=== PATIENT | female | born 1945 | race Caucasian/White ===

== ENCOUNTER 2017-10-22 14:09 | Inpatient (IN) | payer MEDICARE ==
[2017-10-22] VITALS (28 sets, daily range): BP systolic 96–165; BP diastolic 55–83
[2017-10-22] MEDS ORDERED: NS 1,000 ML IV ONE (14:30)
[2017-10-22 14:40] LABS: ABG BASE EXCESS -18.7 (-2.0-2.0); ABG HCO3 15.2 MEQ/L (22.0-26.0); ABG PARTIAL PRESSURE O2 72.1 mmHg (75.0-100.0); ABG STANDARD HCO3 10.5 MEQ/L (22.0-26.0); ABG TOTAL CO2 17.7 MEQ/L (23.0-31.0)
[2017-10-22 14:44] LABS: ABG PARTIAL PRESSURE CO2 80.1 mmHg (35.0-45.0); ABG pH (ARTERIAL) 6.896 UNITS (7.350-7.450)
[2017-10-22 14:54] LABS: BASO % 0.3 % (0.0-1.0); EOS # 0.3 10^3/uL (0.0-0.50); EOS % 2.9 % (0.0-3.0); IMMATURE GRANULOCYTE % 3.3 % (0-0); LYMPH # 3.8 10^3/uL (1.5-4.5); MEAN CORPUSCULAR HEMOGLOBIN 29.9 pg (27.0-33.0); MEAN CORPUSCULAR HGB CONC 28.6 g/dl (32.0-36.5); MEAN CORPUSCULAR VOLUME 104.4 fl (80.0-96.0); MONO # 0.4 10^3/uL (0.0-0.8); MONO % 4.9 % (0.0-5.0); NEUTROPHILS # 3.8 10^3/uL (1.8-7.7); NEUTROPHILS % 44.6 % (36.0-66.0); PLATELET COUNT, AUTOMATED 309 10^3/uL (150-450); RED CELL DISTRIBUTION WIDTH 14.1 % (11.5-14.5); WHITE BLOOD COUNT 8.6 10^3/uL (4.0-10.0)
[2017-10-22 15:03] LABS: INR 1.15
--- NOTE | 2017-10-22 15:03 | REP ---
Chest one-view HISTORY: Chest pain Comparison: 01/19/2014 Patchy density is present in the lungs consistent with bilateral infiltrates or edema. The heart is upper limits of normal in size. The pulmonary vasculature cannot be evaluated. An ET tube is present. The pulmonary vasculature is normal in appearance. Impression: Bilateral infiltrates or edema. Signed by Dario Redd MD 10/22/2017 02:55 P
[2017-10-22 15:20] LABS: ALBUMIN 3.1 GM/DL (3.2-5.2); ALBUMIN/GLOBULIN RATIO 0.82 (1.00-1.93); ALKALINE PHOSPHATASE 101 U/L (45-117); ALT/SGPT 27 U/L (12-78); ANION GAP 15 MEQ/L (8-16); AST/SGOT 26 U/L (7-37); BILIRUBIN,DIRECT < 0.1 MG/DL (0.0-0.2); BILIRUBIN,TOTAL 0.3 MG/DL (0.2-1.0); BLOOD UREA NITROGEN 30 MG/DL (7-18); CALCIUM LEVEL 8.5 MG/DL (8.8-10.2); CARBON DIOXIDE LEVEL 21 MEQ/L (21-32); CHLORIDE LEVEL 107 MEQ/L (98-107); CREATININE FOR GFR 1.73 MG/DL (0.55-1.02); FREE T4 0.81 NG/DL (0.76-1.46); GLOMERULAR FILTRATION RATE 30.9 (>39); GLUCOSE, FASTING 249 MG/DL (83-110); SODIUM LEVEL 143 MEQ/L (136-145); TOTAL PROTEIN 6.9 GM/DL (6.4-8.2)
[2017-10-22 15:29] LABS: POTASSIUM SERUM 6.1 MEQ/L (3.5-5.1)
[2017-10-22] MEDS: DOPamine HCL 400 MG in APPROPRIATE DILUENT 1 EA IV SCH ×4 (15:37→18:53)
[2017-10-22] MEDS ORDERED: MORPHINE 2 MG/ML 1ML SYRINGE IV PRN (16:15)
[2017-10-22] MEDS ORDERED: LACRILUBE (AKWA TEARS) OPHTH OINT 3.5 GM OU PRN (16:15)
--- NOTE | 2017-10-22 16:16 | REP ---
Chest one-view HISTORY: central line placement Comparison: 02:43 p.m. 10/22/2017 Patchy density is present in the lungs consistent with bilateral infiltrates or edema. The heart is upper limits of normal in size. Pulmonary vasculature cannot be evaluated. A central line is present in the superior vena cava. An ET tube is present. Impression: 1. Bilateral infiltrates or edema unchanged compared to the previous study 2. The patient is status post central line placement in the superior vena cava. Signed by Dario Redd MD 10/22/2017 04:07 P
[2017-10-22] MEDS ORDERED: CARV12.5 PO (16:34)
[2017-10-22] MEDS ORDERED: TYLE500T78 PO (16:34)
[2017-10-22] MEDS ORDERED: SIMV40TA2 PO (16:34)
[2017-10-22] MEDS ORDERED: NITR4TASL SL (16:34)
[2017-10-22] MEDS ORDERED: ASPI1TAB PO (16:34)
[2017-10-22] MEDS ORDERED: LISI10TA4 PO (16:34)
[2017-10-22] MEDS ORDERED: FURO80TA2 PO (16:34)
[2017-10-22] MEDS ORDERED: PATIENT COMMENT (16:35)
--- NOTE | 2017-10-22 16:58 | HPE ---
DATE OF ADMISSION: 10/22/2017 CHIEF COMPLAINT: Pulmonary / critical care team was called urgently to the ER for this patient is for cardiopulmonary arrest that occurred prior to arrival in ER. Patient was unresponsive and therefore unable to give any history. and family were able to give limited history. Apparently the patient was leaving a store when she stated she did not feel well and sat down and became unresponsive. According to the ER report the patient so transported her to the ER where she was brought to be in asystole. She was given epinephrine and intubated. CPR was performed and did expel some gastric contents which was felt to be likely aspiration. With CPR demonstrated PA and then converted to sinus rhythm of 80 on dopamine. Blood pressure was 100 on dopamine. When pulmonary critical care team was called in, we saw the patient and proceeded to place a central line. As noted history was difficult to obtain. Review of systems was unable to obtain. PAST MEDICAL HISTORY: I was able to obtain some from the patient's . The patient has a history of coronary artery disease and follows with Dr. Amador. She does have a history of stent placement. She has a history of hypertension. She does have a history of PATRIC and uses C-PAP. FAMILY MEDICAL HISTORY: Noncontributory. MEDICATIONS: According to pulmonary office note for sleep apnea from July the patient is on C-PAP. Nitrostat as needed. Carvedilol 12.5 mg by mouth twice a day, aspirin 81 mg by mouth daily, acetaminophen 500 mg two tablets by mouth daily, furosemide 40 mg 1 tablet by mouth daily, lisinopril 10 mg daily, vitamin D3 1000 units daily. ALLERGIES: According to the patient's NO KNOWN DRUG ALLERGIES. SOCIAL HISTORY: According the patient's , the patient does not smoke or drink alcohol. PHYSICAL EXAMINATION: VITALS: Blood pressure is 121/59 on dopamine going at 58 mcg per kilogram, heart rate is 82, O2 saturation is 92%. General: The patient is unresponsive. HEENT: Head is normocephalic, atraumatic. Eyes pinpoint pupils. Nonreactive. Moist mucous membranes. Tongue is large. Mallampati 4. Neck is large. No discernable JVP. Trachea is midline, no thyromegaly Chest: Diminished breath sounds with no wheezes, rales, rhonchi or crackles.No dullness to percussion Heart: Regular rate and rhythm. PMI unable to tell due to obtain due to the patient's habitus. No murmur rub or gallop. Abdomen: Obese. Positive bowel sounds, soft. No hepatosplenomegaly. Extremities: No edema. Right upperchest wall/ extremity with some cyanosis likely secondary to epinephrine administration. No cyanosis. Neuro: No myoclonus, dtr's hyporeflexic at patella and brachioradialis. Babinski is down going bilaterally. Patient is not triggering the vent currently. LABORATORY DATA: WBC 0.6, hemoglobin 12.2, hematocrit 42.6, platelets 309. Sodium 143, potassium 6.1, chloride 107, carbon dioxide 21, BUN 30, creatinine 1.73, glucose 249, calcium 8.5, total bili 0.38, direct bili less than 0.1, AST 26, ALT 27, alk phos 101, CK 103, CK-MB 2.4, CK-MB relative index 2.33. Troponin I 0.13 ENT 1746, total protein 6.9, albumin 3.1, lipase is 228. TSH is 4.350, free T4 0.81. EKG shows sinus tachycardia with ST depressions. CXR: Diffuse infiltrate versus edema with cardiomegaly. ASSESSMENT/PLAN: 1. Cardiopulmonary arrest, possibly secondary to arrhythmia such as V-Tach versus acute ischemia. The patient will be admitted to ICU. She was intubated. Central line was placed in the ER. Will order echocardiogram to check cardiac function. The patient follows with Dr. Amador as an outpatient. We will consult him. The patient will be cooled to improve neurological recovery. Will monitor on telemetry. The patient will continue on dopamine for hypotension. Check SVO2 to ensure adequate perfusion. 2. Respiratory failure. The patient will receive mechanical ventilation. 3. Aspiration. The patient will be covered with ceftriaxone. 4. Obstructive sleep apnea. 5. Hyperkalemia. This is likely secondary to acidosis. TOTAL CRITICAL CARE TIME: 90 minutes. [facility]
[2017-10-22] MEDS: CEFTRIAXONE SOD 1 GM in APPROPRIATE DILUENT 1 EA IV SCH (17:39)
[2017-10-22] MEDS: levETIRAcetam INJection 500 MG in D5W MINI-BAG PLUS 100 ML IV SCH (17:39)
[2017-10-22 18:05] LABS: CALCIUM LEVEL 8.1 MG/DL (8.8-10.2); CREATININE FOR GFR 1.82 MG/DL (0.55-1.02); GLOMERULAR FILTRATION RATE 29.2 (>39)
[2017-10-22 18:11] LABS: POTASSIUM SERUM 7.3 MEQ/L (3.5-5.1)
[2017-10-22] MEDS ORDERED: FUROSEMIDE 100 MG/10 ML VIAL (J1940) As Ordered ONE (18:11)
[2017-10-22] MEDS ORDERED: FUROSEMIDE 100 MG/10 ML VIAL (J1940) IV ONE (18:15)
[2017-10-22] MEDS ORDERED: DEXTROSE 50% 50 ML SYRINGE IV STA (18:23)
[2017-10-22] MEDS ORDERED: HumuLIN R (REGULAR) INSULIN (NovoLIN R) **100U/ML** PER UNIT IV STA (18:23)
[2017-10-22] MEDS ORDERED: EPINEPHrine 1MG/10ML SYRINGE 1.5IN ONE (18:26)
[2017-10-22] MEDS ORDERED: SODIUM BICARBONATE 8.4% INJ 50 ML SYRINGE ONE (18:26)
--- NOTE | 2017-10-22 18:40 | RO ---
DATE OF PROCEDURE: 10/22/2017 DIAGNOSIS: Hypotension. POSTPROCEDURE DIAGNOSIS: Hypotension. PROCEDURE: Left internal jugular vein venous triple-lumen catheter placement. SURGEON: Dr. Samuel ARTIST REPRESENTATIVE: No assistants. ANESTHESIA: The patient already intubated on mechanical ventilation. No spontaneous movements. Left IJ was prepped and draped in a sterile manner with chlorhexidine full sterile precautions. Time-out was performed with two patient identifiers identifying correct site, correct procedure. Left IJ was then identified under ultrasound and the Angelica syringe was introduced in the IJ on the first pass. There is return of venous blood flow. The wire was fed through the needle and the needle was removed and the triple-lumen catheter was placed via modified Seldinger technique. All three ports returned venous blood flow and flushed easily. There were no observed complications and line was sutured in at 15 cm. Chest x-ray shows adequate position with the tip of the line in the SVC.
[2017-10-22] MEDS ORDERED: CALCIUM GLUCONATE 1,000 MG in D5W MINI-BAG PLUS 100 ML IV ONE (18:45)
[2017-10-22] MEDS: IPRATROPIUM 0.5MG/ALBUTEROL 2.5MG INH SOL UD 3ML (DUONEB)(J7620) NEB SCH (19:21)
--- NOTE | 2017-10-22 20:29 | CR ---
DATE OF CONSULTATION: 10/22/2017 REFERRING PHYSICIAN: Dr. Samuel INDICATION: Cardiac arrest. HISTORY OF PRESENT ILLNESS: Mrs. Olguin is a 72-year-old female who I know from the office. She was in her usual state of health until this afternoon when she was leaving insurance office and she mentioned to her that she was feeling short of breath. He wanted to take her to emergency room immediately but then she wanted to go home but during ride home she said that she was getting worse and so they turned around at which point she lost consciousness. Her drove her to our emergency room. He estimated that the time without consciousness was at least 10 minutes. On arrival to emergency room (ER), she was asystolic. After prolonged cardiopulmonary resuscitation (CPR), there was return of spontaneous circulation. Central line was placed by Dr. Samuel and she was intubated, brought to intensive care unit (ICU) and cooling protocol started. I attempted to place a radial arterial line unsuccessfully. At the time of my evaluation, the patient was intubated. There was no sedation going. She had minimal reflexes. There were frequent fasciculations and she certainly did not have any purposeful movements. Her does not recall that she would complain about any chest discomfort prior to the onset of loss of consciousness. Her electrocardiogram after return of spontaneous circulation revealed sinus tachycardia with precordial ST-segment depressions about 1 mm. At the time of my dictation, her last basic metabolic panel revealed significant hyperkalemia. At her bedside, she is intubated. She has posturing movement. I do not appreciate any corneal reflex. There are fasciculations of both upper and lower extremities. Lungs reveal diffuse expiratory wheezes and crackles consistent with pulmonary edema. There is foaming from the endotracheal (ET) tube . Abdomen is a very obese but soft. There is intertrigo in her groins. The cooling blanket is on. Peripheral pulses are poorly palpable. PAST MEDICAL HISTORY: Coronary artery disease. She underwent cardiac catheterization in December 2013 , after presentation with inferior wall ST-elevation myocardial infarction (STEMI) . She received bare metal stent to proximal right coronary artery (RCA) and drug-eluting stents to mid left anterior descending (LAD) and plain balloon angioplasty to distal LAD. Estimated ejection fraction (EF) was approximately 45%. She also has a history of degenerative joint disease, gastroesophageal reflux disease (GERD), hyperlipidemia, hypertension and psoriasis. Surgical history is positive only for cardiac catheterization. FAMILY HISTORY: Her father had chronic obstructive pulmonary disease (COPD) and coronary artery disease, but lived to be . Her mother in her 70s of unknown causes. SOCIAL HISTORY: The patient is . She never smoked. 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 She has two children that are at the waiting room. OUTPATIENT MEDICATIONS: - aspirin 81 mg a day - Coreg 12.5 twice a day - furosemide 40 mg a day - lisinopril 10 mg a day - nitroglycerin as needed - simvastatin 40 mg a day - Tylenol as needed ALLERGIES: She reports intolerance of LIPITOR. REVIEW OF SYSTEMS: Is unobtainable due to her condition but according to her in last few days there were no unusual events. PHYSICAL EXAMINATION: The patient is intubated without sedation. She has upward gaze. I do not appreciate any obvious corneal reflex. Lungs reveal expiratory wheezes with rhonchi as above. Heart exam very muffled heart sound but no gallop, rub or murmur is appreciated. Abdomen is markedly obese but soft. No obvious guarding. Peripheral pulses are barely palpable but there is no peripheral edema. LABORATORY: Her initial basic metabolic panel reveals potassium 6.1, BUN 30, creatinine 1.7, glucose 249. Followup at 1732, potassium 7.3, BUN is 39, creatinine 1.8, and glucose 392. Her TSH is 4.3. First troponin I was 0.13. CBC with a hemoglobin 12.2, hematocrit 42 and platelet count 309,000. She makes minimal amount of urine. There was about 100 mL through her Aranda catheter. Her chest x-ray reveals pulmonary edema and appropriate placement of the central line. The patient already received 80 mg of IV Lasix, calcium gluconate and also one ampule of D50 and 10 units of insulin in an attempt to treat hyperkalemia. Her followup comprehensive metabolic panel is pending. ASSESSMENT AND PLAN: Mrs. Olguin is a 72-year-old lady who has known coronary artery disease with remote history of coronary intervention about 3-1/2 years ago. She presented with cardiac arrest and presented to the ER with asystole, and later pulseless electrical activity. Unfortunately, her posturing and fasciculations and probable seizure activity are all harbingers of poor prognosis which was very poor to start with. I spoke with her and family; they decided that they do not want to prolong her suffering and decided that she will be DO NOT RESUSCITATE (DNR). In case there is ventricular fibrillation or severe bradycardia, they do not desire that she has chest compressions or defibrillations. They will provide ventilatory support and pressor support at least for foreseeable future, but they are ready to withdraw the care should her condition further deteriorate. I think it is very reasonable but of course statistically speaking, her chances are really poor, especially we should consider favorable outcome. In the interim, we will treat her comorbidities, treatment of hyperkalemia as above. She is on dopamine drip. I will put an order to ask for placement of nasogastric (NG) tube and she will be continued with cooling protocol. I spoke about her condition with Dr. Negro (will be covering for the weekend) and Dr. Wong. CIARRA
[2017-10-22 20:30] LABS: ALBUMIN 3.2 GM/DL (3.2-5.2); ALBUMIN/GLOBULIN RATIO 0.97 (1.00-1.93); BILIRUBIN,TOTAL 0.3 MG/DL (0.2-1.0); CALCIUM LEVEL 8.1 MG/DL (8.8-10.2); CREATININE FOR GFR 1.89 MG/DL (0.55-1.02); GLOMERULAR FILTRATION RATE 27.9 (>39); TOTAL PROTEIN 6.5 GM/DL (6.4-8.2)
[2017-10-22 20:33] LABS: POTASSIUM SERUM 5.6 MEQ/L (3.5-5.1)
[2017-10-22 21:23] LABS: MEAN CORPUSCULAR HEMOGLOBIN 30.4 pg (27.0-33.0); MEAN CORPUSCULAR VOLUME 98.3 fl (80.0-96.0); PLATELET COUNT, AUTOMATED 281 10^3/uL (150-450); RED CELL DISTRIBUTION WIDTH 13.5 % (11.5-14.5); WHITE BLOOD COUNT 17.2 10^3/uL (4.0-10.0)
[2017-10-22 21:34] LABS: INR 1.1
[2017-10-22 21:38] LABS: ABG BASE EXCESS -10.7 (-2.0-2.0); ABG HCO3 15.7 MEQ/L (22.0-26.0); ABG PARTIAL PRESSURE O2 201.4 mmHg (75.0-100.0); ABG STANDARD HCO3 16.1 MEQ/L (22.0-26.0); ABG TOTAL CO2 16.9 MEQ/L (23.0-31.0); ABG pH (ARTERIAL) 7.246 UNITS (7.350-7.450)
[2017-10-22 21:50] LABS: ALBUMIN 3.1 GM/DL (3.2-5.2); ALBUMIN/GLOBULIN RATIO 0.89 (1.00-1.93); BILIRUBIN,TOTAL 0.3 MG/DL (0.2-1.0); CALCIUM LEVEL 8.2 MG/DL (8.8-10.2); CREATININE FOR GFR 1.85 MG/DL (0.55-1.02); GLOMERULAR FILTRATION RATE 28.6 (>39); MAGNESIUM LEVEL 2.4 MG/DL (1.8-2.4); PHOSPHORUS LEVEL 4.8 MG/DL (2.5-4.9); POTASSIUM SERUM 4.6 MEQ/L (3.5-5.1); TOTAL PROTEIN 6.6 GM/DL (6.4-8.2)
[2017-10-22] MEDS: LACRILUBE (AKWA TEARS) OPHTH OINT 3.5 GM OU SCH (22:10)
[2017-10-22] MEDS: CHLORHEXIDINE ORAL RINSE 0.12%/15ML 120ML BOTTLE MT SCH (22:11)
[2017-10-23] VITALS (28 sets, daily range): BP systolic 107–156; BP diastolic 66–103; O2SAT 100
[2017-10-23 01:14] LABS: MEAN CORPUSCULAR HEMOGLOBIN 30.6 pg (27.0-33.0); MEAN CORPUSCULAR HGB CONC 31.8 g/dl (32.0-36.5); MEAN CORPUSCULAR VOLUME 96.2 fl (80.0-96.0); PLATELET COUNT, AUTOMATED 251 10^3/uL (150-450); RED CELL DISTRIBUTION WIDTH 13.4 % (11.5-14.5); WHITE BLOOD COUNT 14.7 10^3/uL (4.0-10.0)
[2017-10-23 01:17] LABS: ABG BASE EXCESS -9.4 (-2.0-2.0); ABG HCO3 15.4 MEQ/L (22.0-26.0); ABG PARTIAL PRESSURE CO2 30.6 mmHg (35.0-45.0); ABG PARTIAL PRESSURE O2 370.7 mmHg (75.0-100.0); ABG TOTAL CO2 16.4 MEQ/L (23.0-31.0)
[2017-10-23 01:25] LABS: INR 1.06
[2017-10-23 01:42] LABS: ALBUMIN/GLOBULIN RATIO 0.88 (1.00-1.93); BILIRUBIN,TOTAL 0.3 MG/DL (0.2-1.0); CALCIUM LEVEL 8.5 MG/DL (8.8-10.2); CREATININE FOR GFR 1.81 MG/DL (0.55-1.02); GLOMERULAR FILTRATION RATE 29.3 (>39); MAGNESIUM LEVEL 2.3 MG/DL (1.8-2.4); PHOSPHORUS LEVEL 3.9 MG/DL (2.5-4.9); POTASSIUM SERUM 4.2 MEQ/L (3.5-5.1); TOTAL PROTEIN 6.4 GM/DL (6.4-8.2)
[2017-10-23 05:23] LABS: ABG BASE EXCESS -8.5 (-2.0-2.0); ABG HCO3 16.6 MEQ/L (22.0-26.0); ABG PARTIAL PRESSURE CO2 33.1 mmHg (35.0-45.0); ABG PARTIAL PRESSURE O2 191.7 mmHg (75.0-100.0); ABG STANDARD HCO3 17.7 MEQ/L (22.0-26.0); ABG TOTAL CO2 17.6 MEQ/L (23.0-31.0); ABG pH (ARTERIAL) 7.318 UNITS (7.350-7.450)
[2017-10-23 05:34] LABS: MEAN CORPUSCULAR HEMOGLOBIN 30.1 pg (27.0-33.0); MEAN CORPUSCULAR HGB CONC 31.7 g/dl (32.0-36.5); MEAN CORPUSCULAR VOLUME 94.9 fl (80.0-96.0); PLATELET COUNT, AUTOMATED 252 10^3/uL (150-450); RED CELL DISTRIBUTION WIDTH 13.3 % (11.5-14.5)
[2017-10-23 05:46] LABS: INR 1.15
[2017-10-23 05:56] LABS: ALBUMIN 3.1 GM/DL (3.2-5.2); ALBUMIN/GLOBULIN RATIO 0.91 (1.00-1.93); BILIRUBIN,TOTAL 0.4 MG/DL (0.2-1.0); CALCIUM LEVEL 8.5 MG/DL (8.8-10.2); CREATININE FOR GFR 1.78 MG/DL (0.55-1.02); GLOMERULAR FILTRATION RATE 29.9 (>39); MAGNESIUM LEVEL 2.5 MG/DL (1.8-2.4); POTASSIUM SERUM 4.8 MEQ/L (3.5-5.1); TOTAL PROTEIN 6.5 GM/DL (6.4-8.2)
[2017-10-23] MEDS: levETIRAcetam INJection 500 MG in D5W MINI-BAG PLUS 100 ML IV SCH ×2 (06:12→17:12)
[2017-10-23] MEDS: IPRATROPIUM 0.5MG/ALBUTEROL 2.5MG INH SOL UD 3ML (DUONEB)(J7620) NEB SCH ×4 (07:37→20:49)
--- NOTE | 2017-10-23 08:39 | REP ---
Chest one-view HISTORY: Respiratory failure Comparison: 10/22/2017 Patchy density is present in the lungs consistent with bilateral infiltrates or edema unchanged compared to the previous study. A small left pleural effusion is present. The heart is upper limits of normal in size. The pulmonary vasculature is prominent. An ET tube NG tube and central line are present. Impression: Bilateral infiltrates or edema unchanged compared to the previous study. Signed by Dario Redd MD 10/23/2017 08:30 A
[2017-10-23] MEDS ORDERED: MORPHINE 2 MG/ML 1ML SYRINGE IV PRN (08:45)
[2017-10-23] MEDS: CHLORHEXIDINE ORAL RINSE 0.12%/15ML 120ML BOTTLE MT SCH ×2 (09:29→21:18)
[2017-10-23] MEDS: LACRILUBE (AKWA TEARS) OPHTH OINT 3.5 GM OU SCH ×3 (09:29→21:18)
[2017-10-23] MEDS ORDERED: REFRIGERATOR IV KEYS XX PRN (09:30)
[2017-10-23] MEDS ORDERED: MIDAZOLAM HCL 100 MG in D5W 80 ML IV SCH (09:30)
[2017-10-23 09:50] LABS: INR 1.01; MEAN CORPUSCULAR HEMOGLOBIN 30.2 pg (27.0-33.0); MEAN CORPUSCULAR VOLUME 94.3 fl (80.0-96.0); PLATELET COUNT, AUTOMATED 204 10^3/uL (150-450); RED CELL DISTRIBUTION WIDTH 13.3 % (11.5-14.5); WHITE BLOOD COUNT 13.4 10^3/uL (4.0-10.0)
[2017-10-23 09:55] LABS: ALBUMIN 3.1 GM/DL (3.2-5.2); ALBUMIN/GLOBULIN RATIO 0.89 (1.00-1.93); BILIRUBIN,TOTAL 0.3 MG/DL (0.2-1.0); CALCIUM LEVEL 8.2 MG/DL (8.8-10.2); CREATININE FOR GFR 1.8 MG/DL (0.55-1.02); GLOMERULAR FILTRATION RATE 29.5 (>39); MAGNESIUM LEVEL 2.4 MG/DL (1.8-2.4); PHOSPHORUS LEVEL 5.1 MG/DL (2.5-4.9); POTASSIUM SERUM 4.8 MEQ/L (3.5-5.1); TOTAL PROTEIN 6.6 GM/DL (6.4-8.2)
[2017-10-23] MEDS: PANTOPRAZOLE 40MG INJ (PROTONIX) (C9113) IV SCH (10:26)
[2017-10-23] MEDS: ASPIRIN 325 MG TAB NG SCH (10:26)
[2017-10-23] MEDS: ENOXAPARIN 40 MG/0.4 ML SYRINGE (J1650) SC SCH (10:26)
--- NOTE | 2017-10-23 10:41 | CCN ---
DATE OF VISIT: 10/23/2017 START TIME: 0800 hours. STOP TIME: 0842 hours. I attended Yarely Olguin here in the intensive care unit. Patient has been examined. Chart reviewed. I spoke at length with the nurse at the bedside. I had a lengthy conversation last evening as well, with Dr. Amador regarding her status. She remains on hypothermia protocol. She did meet goal temperature at around 1700 hours yesterday. Blood pressure is 120-160s. She has been able to be weaned off of the dopamine. Heart rate 50-70s with frequent ectopy. She does over breathe ventilator. She has made minimal urinary output. Most recent laboratory show a white blood cell count of 18.0, hemoglobin 12.3, platelet count 252,000. Sodium 142, potassium (K) 4.8, chloride 109, CO2 21, BUN 43, creatinine 1.78. Repeat lactic acid down 2.4. Most recent arterial blood gas done on assist control mode, tidal volume 440, rate of 20 and PEEP of 5 with an FiO2 of 80% had a pH 7.318, pCO2 33.1 and a pO2 of 191.7. Chest x-ray shows lines and tubes in good position. There is increased densities in the mid lung zones. Hilar area bilaterally consistent for pulmonary edema. On exam, eyes are open but she does not interact. She has received minimal sedation only in the form of morphine. She does over breathe the ventilator but really does not respond much to other stimuli. I do believe the pupils are somewhat reactive. Chest shows diminished but symmetric expansion. Diminished intensity inferiorly. There are dependent crackles. No convincing rhonchi. Cardiac exam is distant with frequent ectopy. Peripheral pulses markedly diminished but she is quite cool at the moment. Abdomen difficult to examine with the hypothermia blanket in place but generally soft. Diminished bowel sound activity. Extremities show no cyanosis or clubbing. Neurologically, she does not interact. There is occasional involuntary muscle activity. Does not appear to be seizure activity. Certainly could be myoclonus. Possibility of ineffectual shivering as well. The most pressing problems requiring my presence at the bedside: 1. Respiratory failure requiring mechanical ventilatory support. 2. Status post cardiac arrest. 3. Metabolic acidosis, multifactorial. 4. Encephalopathy, suspect primarily anoxic. 5. Underlying coronary artery disease. 6. DO NOT RESUSCITATE status. Dr. Amador had a lengthy discussion with the patient's family last evening, who he knows well from the outpatient setting and they have made her DO NOT RESUSCITATE. I believe this is quite appropriate. They are in full agreement with our current level of support. Once we are able to begin the rewarming process, we can consider diuretics at that point, but given the fact that she still has mild metabolic acidosis and is being cooled, I will tolerate her pulmonary edema pattern at this point as it is not interfering with her oxygenation status. I will add morphine and Versed in addition to the Keppra for her seizures/myoclonus. Once she has been rewarmed, at that point in time, we will reassess her neurologic status with repeat CT scan of the brain. I will continue her current antimicrobics. Ulcer and deep venous thrombosis (DVT) prophylaxis are in place. Once she is rewarmed, we can address nutrition. In view of her above situation, prognosis overall is guarded at best and there is a very high likelihood she will not survive this hospitalization. I am quite concerned regarding meaningful neurologic recovery as well, and that will be assessed on an ongoing basis. I left the bedside at 0842 hours. 42 of minutes of critical time at the bedside, not including procedures.
--- NOTE | 2017-10-23 10:46 | ECGEPIP ---
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
[2017-10-23 10:57] LABS: ABG BASE EXCESS -7.6 (-2.0-2.0); ABG HCO3 16.4 MEQ/L (22.0-26.0); ABG PARTIAL PRESSURE O2 89.7 mmHg (75.0-100.0); ABG STANDARD HCO3 18.3 MEQ/L (22.0-26.0); ABG TOTAL CO2 17.2 MEQ/L (23.0-31.0); ABG pH (ARTERIAL) 7.431 UNITS (7.350-7.450)
[2017-10-23 13:20] LABS: MEAN CORPUSCULAR HEMOGLOBIN 30.1 pg (27.0-33.0); MEAN CORPUSCULAR HGB CONC 32.5 g/dl (32.0-36.5); MEAN CORPUSCULAR VOLUME 92.8 fl (80.0-96.0); PLATELET COUNT, AUTOMATED 181 10^3/uL (150-450); RED CELL DISTRIBUTION WIDTH 13.3 % (11.5-14.5); WHITE BLOOD COUNT 11.1 10^3/uL (4.0-10.0)
[2017-10-23 13:33] LABS: INR 1.09
[2017-10-23 13:50] LABS: ALBUMIN 2.8 GM/DL (3.2-5.2); ALBUMIN/GLOBULIN RATIO 0.9 (1.00-1.93); BILIRUBIN,TOTAL 0.3 MG/DL (0.2-1.0); CALCIUM LEVEL 8.4 MG/DL (8.8-10.2); CREATININE FOR GFR 1.63 MG/DL (0.55-1.02); GLOMERULAR FILTRATION RATE 33.1 (>39); MAGNESIUM LEVEL 2.2 MG/DL (1.8-2.4); PHOSPHORUS LEVEL 4.8 MG/DL (2.5-4.9); POTASSIUM SERUM 4.4 MEQ/L (3.5-5.1); TOTAL PROTEIN 5.9 GM/DL (6.4-8.2)
[2017-10-23 13:54] LABS: ABG BASE EXCESS -6.7 (-2.0-2.0); ABG HCO3 16.9 MEQ/L (22.0-26.0); ABG PARTIAL PRESSURE CO2 23.6 mmHg (35.0-45.0); ABG TOTAL CO2 17.8 MEQ/L (23.0-31.0); ABG pH (ARTERIAL) 7.455 UNITS (7.350-7.450)
--- NOTE | 2017-10-23 15:05 | ECHO ---
DATE OF PROCEDURE: 10/23/2017 DATE OF : 1945 AGE: 72 GENDER: Female HEIGHT: 68 inches WEIGHT: 286 pounds BODY SURFACE AREA: 2.38 meters squared INPATIENT: ICU, room 3210 REFERRING PHYSICIAN: Dr. Monty Samuel INDICATION: Cardiac arrest/ known coronary artery disease/prior inferior wall myocardial infarction (IWMI). MEASUREMENTS: 2D measurements: RV: 3.8 cm LV: 5.8 cm Septum: 1.2 cm Posterior wall: 1.0 cm Aortic root: 3.2 cm LA: 5.3 cm LVEF: 40%. Doppler measurements: AV: 1.8 meters per second LVOT: 1.1 meters per second LVOT diameter: 2.2 cm MV-E: 77, A: 62, EA ratio: 1.2 Early mitral deceleration time: 225 milliseconds E prime: 6.2, A prime: 8, E/E prime ratio: 12.3 PV: 1.0 meters per second Pulmonary artery acceleration time: 99 milliseconds RVSP: 34 mmHg IVC: 2.0 cm COMMENTS: Normal sinus rhythm with occasional to frequent isolated premature ventricular contractions (PVCs). Prominently dilated left atrium and mild to moderately dilated left ventricle. Right heart chamber sizes were normal. Left ventricular (LV) wall thickness was increased except for the inferior wall. On real-time imaging from the parasternal and apical projections, the inferoseptal and inferior duenas were akinetic. Other left ventricular wall segments moved normally. Mildly thickened mitral annulus but normal leaflet thickness and excursion with no posterior systolic buckling. Three equal size aortic cusps with mildly thickened cusp edges but adequate cusp separation. Normal aortic root size. No apparent intracardiac mass or pericardial effusion. Color flow Doppler study taken from the parasternal and apical projection showed no aortic, mild-moderate eccentrically directed mitral insufficiency and mild tricuspid insufficiency. Guided continuous wave Doppler of her aortic valve showed a normal peak systolic velocity against LV outflow tract obstruction. Pulsed and continuous wave Doppler of her LV inflow tract taken from the apical four-chamber projection showed normal diastolic filling velocities against mitral stenosis. There was a pseudo normal pulse wave filling pattern with evidence of LV diastolic dysfunction with a prolonged early mitral deceleration time and tissue Doppler of her mitral annulus. Current estimated mean left atrial pressure was upper limits of normal. Pulsed and continuous wave Doppler of her pulmonary trunk showed a normal peak systolic velocity against RV outflow tract obstruction. Pulmonary artery acceleration time was abbreviated suggestive of least a mildly elevated pulmonary vascular resistance. Guided continuous wave Doppler of her tricuspid valve allowed our estimation of her right ventricular systolic pressure (mildly increased). Her inferior vena cava was of normal size with normal respiratory collapse against an elevated central venous pressure at this time. CONCLUSIONS: Mild to moderately dilated left ventricle with hypertrophy but inferior and inferoseptal akinesis and at least mild to moderate impairment of global resting systolic function. Prominently dilated left atrium with Doppler evidence of an impairment of LV diastolic function, yet current estimated mean left atrial pressure was upper limits of normal to at most mildly elevated. Normal right heart chamber sizes and wall motion with mild pulmonary hypertension. Normal inferior vena cava (IVC) size and collapse against an elevated central venous pressure at this time. Aortic valvular sclerosis without functional abnormality. Mild mitral annular calcification with mild-moderate eccentrically directed insufficiency.
[2017-10-23 17:11] LABS: ABG BASE EXCESS -7.9 (-2.0-2.0); ABG PARTIAL PRESSURE CO2 24.5 mmHg (35.0-45.0); ABG PARTIAL PRESSURE O2 123.3 mmHg (75.0-100.0); ABG STANDARD HCO3 18.1 MEQ/L (22.0-26.0); ABG TOTAL CO2 16.9 MEQ/L (23.0-31.0); ABG pH (ARTERIAL) 7.419 UNITS (7.350-7.450)
[2017-10-23 17:13] LABS: MEAN CORPUSCULAR HEMOGLOBIN 29.5 pg (27.0-33.0); MEAN CORPUSCULAR HGB CONC 31.7 g/dl (32.0-36.5); PLATELET COUNT, AUTOMATED 189 10^3/uL (150-450); RED CELL DISTRIBUTION WIDTH 13.2 % (11.5-14.5); WHITE BLOOD COUNT 12.2 10^3/uL (4.0-10.0)
[2017-10-23 17:17] LABS: INR 1.14
[2017-10-23 17:33] LABS: ALBUMIN 2.9 GM/DL (3.2-5.2); ALBUMIN/GLOBULIN RATIO 0.97 (1.00-1.93); BILIRUBIN,TOTAL 0.3 MG/DL (0.2-1.0); CALCIUM LEVEL 8.3 MG/DL (8.8-10.2); CREATININE FOR GFR 1.68 MG/DL (0.55-1.02); MAGNESIUM LEVEL 2.3 MG/DL (1.8-2.4); POTASSIUM SERUM 4.5 MEQ/L (3.5-5.1); TOTAL PROTEIN 5.9 GM/DL (6.4-8.2)
[2017-10-23] MEDS: CEFTRIAXONE SOD 1 GM in APPROPRIATE DILUENT 1 EA IV SCH (17:42)
[2017-10-23 21:01] LABS: MEAN CORPUSCULAR HEMOGLOBIN 29.8 pg (27.0-33.0); MEAN CORPUSCULAR VOLUME 93.1 fl (80.0-96.0); PLATELET COUNT, AUTOMATED 209 10^3/uL (150-450); RED CELL DISTRIBUTION WIDTH 13.3 % (11.5-14.5); WHITE BLOOD COUNT 14.9 10^3/uL (4.0-10.0)
[2017-10-23 21:13] LABS: ABG BASE EXCESS -6.7 (-2.0-2.0); ABG HCO3 17.4 MEQ/L (22.0-26.0); ABG PARTIAL PRESSURE CO2 30.9 mmHg (35.0-45.0); ABG PARTIAL PRESSURE O2 143.7 mmHg (75.0-100.0); ABG TOTAL CO2 18.4 MEQ/L (23.0-31.0); ABG pH (ARTERIAL) 7.369 UNITS (7.350-7.450)
[2017-10-23] MEDS: D5W/0.45% SODIUM CHLORIDE 1,000 ML IV SCH (21:18)
[2017-10-23 21:25] LABS: INR 1.13
[2017-10-23 21:34] LABS: ALBUMIN 2.9 GM/DL (3.2-5.2); ALBUMIN/GLOBULIN RATIO 0.85 (1.00-1.93); BILIRUBIN,TOTAL 0.3 MG/DL (0.2-1.0); CALCIUM LEVEL 8.1 MG/DL (8.8-10.2); CREATININE FOR GFR 1.55 MG/DL (0.55-1.02); GLOMERULAR FILTRATION RATE 35.1 (>39); MAGNESIUM LEVEL 2.3 MG/DL (1.8-2.4); PHOSPHORUS LEVEL 5.3 MG/DL (2.5-4.9); POTASSIUM SERUM 4.9 MEQ/L (3.5-5.1); TOTAL PROTEIN 6.3 GM/DL (6.4-8.2)
[2017-10-24] VITALS (27 sets, daily range): BP systolic 90–141; BP diastolic 55–78; O2SAT 99
[2017-10-24 01:14] LABS: MEAN CORPUSCULAR HEMOGLOBIN 30.4 pg (27.0-33.0); MEAN CORPUSCULAR HGB CONC 32.7 g/dl (32.0-36.5); MEAN CORPUSCULAR VOLUME 92.8 fl (80.0-96.0); PLATELET COUNT, AUTOMATED 181 10^3/uL (150-450); RED CELL DISTRIBUTION WIDTH 13.5 % (11.5-14.5); WHITE BLOOD COUNT 13.6 10^3/uL (4.0-10.0)
[2017-10-24 01:45] LABS: MAGNESIUM LEVEL 2.2 MG/DL (1.8-2.4); PHOSPHORUS LEVEL 5.1 MG/DL (2.5-4.9)
[2017-10-24 05:04] LABS: MEAN CORPUSCULAR HEMOGLOBIN 30.2 pg (27.0-33.0); MEAN CORPUSCULAR HGB CONC 32.8 g/dl (32.0-36.5); PLATELET COUNT, AUTOMATED 199 10^3/uL (150-450); RED CELL DISTRIBUTION WIDTH 13.4 % (11.5-14.5); WHITE BLOOD COUNT 14.6 10^3/uL (4.0-10.0)
[2017-10-24] MEDS: levETIRAcetam INJection 500 MG in D5W MINI-BAG PLUS 100 ML IV SCH ×2 (05:22→16:58)
[2017-10-24 05:30] LABS: MAGNESIUM LEVEL 2.2 MG/DL (1.8-2.4); PHOSPHORUS LEVEL 5.2 MG/DL (2.5-4.9)
[2017-10-24 05:33] LABS: ALBUMIN 2.6 GM/DL (3.2-5.2); ALBUMIN/GLOBULIN RATIO 0.84 (1.00-1.93); BILIRUBIN,TOTAL 0.3 MG/DL (0.2-1.0); CREATININE FOR GFR 1.35 MG/DL (0.55-1.02); GLOMERULAR FILTRATION RATE 41.2 (>39); MAGNESIUM LEVEL 2.2 MG/DL (1.8-2.4); POTASSIUM SERUM 4.5 MEQ/L (3.5-5.1); TOTAL PROTEIN 5.7 GM/DL (6.4-8.2)
[2017-10-24 05:46] LABS: ABG BASE EXCESS -5.8 (-2.0-2.0); ABG HCO3 17.5 MEQ/L (22.0-26.0); ABG PARTIAL PRESSURE O2 141.3 mmHg (75.0-100.0); ABG STANDARD HCO3 19.7 MEQ/L (22.0-26.0); ABG TOTAL CO2 18.4 MEQ/L (23.0-31.0); ABG pH (ARTERIAL) 7.414 UNITS (7.350-7.450)
--- NOTE | 2017-10-24 07:01 | ECGEPIP ---
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
[2017-10-24] MEDS: IPRATROPIUM 0.5MG/ALBUTEROL 2.5MG INH SOL UD 3ML (DUONEB)(J7620) NEB SCH ×4 (07:23→20:12)
[2017-10-24] MEDS: D5W/0.45% SODIUM CHLORIDE 1,000 ML IV SCH ×2 (07:30→17:34)
--- NOTE | 2017-10-24 09:02 | REP ---
Chest one-view HISTORY: Respiratory failure Comparison: 10/23/2017 Patchy density is present in the lungs consistent with bilateral infiltrates or edema that is decreased compared to the previous study. A small left pleural effusion is present. The heart is upper limits of normal in size. The pulmonary vasculature is prominent. An ET tube and central line are present. Impression: Bilateral infiltrates or edema decreased compared to the previous study. Signed by Dario Redd MD 10/24/2017 08:54 A
[2017-10-24 09:22] LABS: MEAN CORPUSCULAR HEMOGLOBIN 29.8 pg (27.0-33.0); MEAN CORPUSCULAR HGB CONC 32.3 g/dl (32.0-36.5); MEAN CORPUSCULAR VOLUME 92.4 fl (80.0-96.0); PLATELET COUNT, AUTOMATED 199 10^3/uL (150-450); RED CELL DISTRIBUTION WIDTH 13.6 % (11.5-14.5); WHITE BLOOD COUNT 14.5 10^3/uL (4.0-10.0)
[2017-10-24 09:36] LABS: MAGNESIUM LEVEL 2.2 MG/DL (1.8-2.4); PHOSPHORUS LEVEL 5.2 MG/DL (2.5-4.9)
[2017-10-24] MEDS: LACRILUBE (AKWA TEARS) OPHTH OINT 3.5 GM OU SCH ×3 (10:04→21:41)
[2017-10-24] MEDS: PANTOPRAZOLE 40MG INJ (PROTONIX) (C9113) IV SCH (10:04)
[2017-10-24] MEDS: CHLORHEXIDINE ORAL RINSE 0.12%/15ML 120ML BOTTLE MT SCH ×2 (10:04→21:41)
[2017-10-24] MEDS: ENOXAPARIN 40 MG/0.4 ML SYRINGE (J1650) SC SCH (10:05)
[2017-10-24] MEDS: ASPIRIN 325 MG TAB NG SCH (10:05)
--- NOTE | 2017-10-24 11:06 | CCN ---
DATE: 10/24/2017 START TIME: 0850 hours STOP TIME: 0941 hours I again attended Yarely Olguin here in the intensive care unit. The patient has been examined, chart reviewed. Maximum temperature (T max) overnight 97. She has completed the active rewarming process. Blood pressure 90 to 120s. She remains off of dopamine. Heart rate generally in the 60 to 80s with a sinus mechanism. She does over breathe the ventilator. Intake and output midnight to midnight: 604 mL with 882 mL out. Most recent laboratories show a sodium of 143, potassium of 4.5, chloride 112, CO2 20, BUN 44, creatinine 1.35. Phosphorus mildly elevated at 5.2, albumin 2.6, white blood cell count 14.5, hemoglobin 10.2, platelet count 199,000. Blood gas done this morning on PRVC mode rate of 20, tidal volume 500, PEEP of 5, FiO2 of 50% has a pH of 7.414, pCO2 of 28.0, pO2 of 141.3. Chest x-ray shows lines and tubes in good position. Maybe less central edema, although suboptimal inspiration is suspected. On exam, she is on 2 mg of Versed continuously. She is essentially unresponsive. She has persistent contractual activity in her periorbital musculature. Pupils may be reactive but difficult to assess. No convincing corneals. Trachea is in the midline. Chest fairly clear anteriorly. Expansion is symmetric. There are dependent crackles. Abdomen is obese and hypoactive bowel sounds. No obvious organomegaly or masses. Extremities show bruises consistent with hospitalization. Dependent edema is noted. Neurologically, she is not responsive to voice. With noxious stimuli of the upper extremities, she has posturing of the lower extremities. She remains on Rocephin. Ulcer and deep vein thrombosis (DVT) prophylaxis are in place. The most pressing problems requiring my presence at the bedside: 1. Anoxic encephalopathy status post cardiac arrest. 2. Coronary artery disease. 3. Underlying hypertension. 4. Obstructive sleep apnea syndrome. At this point, we will continue her Keppra. I have stopped her Versed drip as I have spoken at length with Dr. Castro from neurology who will kindly evaluate her today. Should she have significant return of seizure-like activity, then we will restart her Versed or use Ativan pending his evaluation. We will get a CT scan of her head this morning since she is now off the active rewarming process. In view of the above, her prognosis regarding meaningful neurologic recovery is guarded at best. Family had requested first day for her to be a DO NOT RESUSCITATE and that remains in place. She is receiving maintenance IV fluids. Depending upon the evaluation today, we likely will begin enteral feeds. We will continue as outlined above. Overall prognosis is poor. I left the bedside at 0941 hours. 51 minutes of critical care time at the bedside, not including procedures.
--- NOTE | 2017-10-24 11:08 | REP ---
CT Head without contrast HISTORY: Anoxic encephalopathy COMPARISON: None An area of decreased attenuation is present in the posterior left temporal lobe. This represents an old infarction. Areas of decreased attenuation are present in the periventricular and subcortical white matter. This represents small-vessel ischemic disease. There is no intraparenchymal hemorrhage, acute infarct, mass or midline shift. The ventricular system is normal in appearance. There is no extra cerebral collection. There is no fracture. The visualized sinuses are clear. IMPRESSION: 1. 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 2. Small vessel ischemic disease. Signed by Dario Redd MD 10/24/2017 11:00 A
[2017-10-24] MEDS: CEFTRIAXONE SOD 1 GM in APPROPRIATE DILUENT 1 EA IV SCH (17:34)
--- NOTE | 2017-10-24 19:45 | CR ---
DATE OF CONSULTATION: 10/24/2017 REFERRING PHYSICIAN: Dr. Sourav Wong. REASON FOR CONSULTATION: Anoxic brain injury. HISTORY OF PRESENT ILLNESS: Yarely Olguin is a 72-year-old woman who became unresponsive in her car. She was leaving a store and did not feel well, sat down and became unresponsive. Her drove her to emergency department which took 15 minutes. She was found to be in asystole in the emergency department. She was given epinephrine and was intubated. Cardiopulmonary resuscitation was performed and the patient was found to have pulseless electrical activity which converted to sinus rhythm on dopamine. Her blood pressure systolic was 100 on dopamine. The patient was intubated and was started on hypothermic protocol. She has been off Versed for the last eight hours without responsiveness. She is on mechanical ventilator and does not respond. She had myoclonic seizures of her face and upper extremities for which she has been on Keppra. PAST MEDICAL HISTORY: Coronary artery disease status post stents, hypertension, obstructive sleep apnea syndrome on continuous positive airway pressure (CPAP). FAMILY HISTORY: Noncontributory. ALLERGIES: No known drug allergies. HOME MEDICATIONS: Coreg, aspirin, Tylenol, furosemide, lisinopril, vitamin D3. SOCIAL HISTORY: There are no reports of smoking, alcohol or illicit drugs. REVIEW OF SYSTEMS: Could not be obtained. PHYSICAL EXAMINATION: VITAL SIGNS: Temperature 97.6, pulse 83, respiratory 20, blood pressure 102/59, 100% saturation on mechanical ventilation. HEART: Regular rate and rhythm. LUNGS: Clear to auscultation. EXTREMITIES: No pedal edema. No rash. No gross musculoskeletal abnormalities. NEUROLOGIC: The patient is unresponsive and does not respond to painful stimuli. She has decerebrate posturing on painful stimuli. Her eyes are deviated upwards. Her pupils are 6 mm bilaterally reactive to light. She has mild corneal reflex bilaterally. She does not wake up. Plantars are mute. Sensory and cerebellar testing could not be performed. DIAGNOSTIC STUDIES: Her CT scan of head was reviewed and showed old left temporal ischemic stroke and diffuse cerebral edema without presence of sepulveda white matter differentiation. Her creatinine was 1.89 which decreased to 1.3 today and AST was 83. ASSESSMENT: 1. Hypoxic anoxic brain injury. 2. Anoxic encephalopathy due to cardiopulmonary arrest. PLAN: 1. Her prognosis is guarded. 2. Electroencephalogram (EEG) with brain protocol tomorrow. 3. We will continue supportive care until family decides about withdrawal of care.
[2017-10-25] VITALS (19 sets, daily range): BP systolic 94–139; BP diastolic 52–86
[2017-10-25] MEDS: D5W/0.45% SODIUM CHLORIDE 1,000 ML IV SCH ×2 (03:18→15:17)
[2017-10-25] MEDS: levETIRAcetam INJection 500 MG in D5W MINI-BAG PLUS 100 ML IV SCH (05:14)
[2017-10-25 05:54] LABS: ABG BASE EXCESS -4.3 (-2.0-2.0); ABG HCO3 18.9 MEQ/L (22.0-26.0); ABG PARTIAL PRESSURE CO2 28.5 mmHg (35.0-45.0); ABG PARTIAL PRESSURE O2 169.1 mmHg (75.0-100.0); ABG STANDARD HCO3 20.9 MEQ/L (22.0-26.0); ABG TOTAL CO2 19.8 MEQ/L (23.0-31.0); ABG pH (ARTERIAL) 7.439 UNITS (7.350-7.450)
[2017-10-25 06:11] LABS: MEAN CORPUSCULAR HEMOGLOBIN 30.5 pg (27.0-33.0); MEAN CORPUSCULAR HGB CONC 32.9 g/dl (32.0-36.5); MEAN CORPUSCULAR VOLUME 92.9 fl (80.0-96.0); PLATELET COUNT, AUTOMATED 196 10^3/uL (150-450); RED CELL DISTRIBUTION WIDTH 14.2 % (11.5-14.5); WHITE BLOOD COUNT 13.1 10^3/uL (4.0-10.0)
[2017-10-25 06:56] LABS: ALBUMIN 2.4 GM/DL (3.2-5.2); ALBUMIN/GLOBULIN RATIO 0.83 (1.00-1.93); BILIRUBIN,TOTAL 0.3 MG/DL (0.2-1.0); CALCIUM LEVEL 7.5 MG/DL (8.8-10.2); CREATININE FOR GFR 1.49 MG/DL (0.55-1.02); GLOMERULAR FILTRATION RATE 36.7 (>39); MAGNESIUM LEVEL 2.1 MG/DL (1.8-2.4); POTASSIUM SERUM 5.1 MEQ/L (3.5-5.1); TOTAL PROTEIN 5.3 GM/DL (6.4-8.2)
[2017-10-25] MEDS: IPRATROPIUM 0.5MG/ALBUTEROL 2.5MG INH SOL UD 3ML (DUONEB)(J7620) NEB SCH ×3 (07:06→15:35)
--- NOTE | 2017-10-25 07:31 | IPN ---
DATE: 10/25/2017 Mrs. Olguin continues to be in the intensive care unit (ICU) intubated. She has not been sedated for well over 24 hours and there is not much motor activity but hemodynamically she has been stable. There have been a few episodes of supraventricular tachycardias but overall no major any arrhythmias. She has been able to maintain her blood pressure without pressors. Vital signs this morning: Blood pressure 139/63, heart rate has been mostly 90s low 100s, sinus rhythm and sinus tachycardia. She saturates on high 90s on 50% FiO2. Fluid balance yesterday was documented a positive 2 liters. Weight is documented today 128.5 kg. She is unresponsive even without sedation. To painful stimulation, she would open her eyes there with some minimal movements of her upper extremities that do not seem to be purposeful. She has some worse plantar responses. Lungs are relatively clear to auscultation. I do not appreciate wheezing or crackles. Heart: Exam reveals regular rhythm without gallop or rub. Abdomen is obese but soft. No skin lesions. LABORATORY: Basic metabolic panel reveals potassium 5.1, BUN 40, creatinine 1.4 for GFR 37, glucose 110. Her troponin this morning is 0.15 and ECG reveals sinus rhythm without appreciable ST-T abnormalities. Chest x-ray Reveals ongoing cardiomegaly, mild congestive heart failure. ASSESSMENT/PLAN: Mrs. Olguin is a 72-year-old female who suffered a cardiac arrest on Wednesday. It does not seem that she suffered significant myocardial infarction as her cardiac enzymes are only very marginally elevated. I have to assume that this was most likely arrhythmic event. Nevertheless, there was prolonged loss of respiration and resulting severe anoxic brain injury. At this point she has been stable from cardiac perspective. I would continue supportive management and it will be up to family whether they would consider withdrawing care. Dr. Castro from neurology is involved in this decision making. Based on his note, the chance of meaningful neurologic recovery is rather low.
[2017-10-25] MEDS ORDERED: FUROSEMIDE 20 MG/2 ML VIAL (J1940) IV ONE (08:00)
--- NOTE | 2017-10-25 08:09 | REP ---
Portable chest, single AP view, the patient semi upright, 06:45 a.m.: Comparison is 11/20/2017. The patchy bilateral infiltrates continue to improve. There is effacement of the left costophrenic angle, unchanged. This could be a small infiltrate or effusion. Cardiac size is again upper normal, unchanged. The endotracheal tube terminates as fracture of the paris, unchanged. There is a right IJ central venous catheter in satisfactory position, unchanged. Impression: The patchy bilateral infiltrates continue to improve. Signed by Mack Pascal MD 10/25/2017 08:01 A
[2017-10-25] MEDS: PANTOPRAZOLE 40MG INJ (PROTONIX) (C9113) IV SCH (08:18)
[2017-10-25] MEDS: CHLORHEXIDINE ORAL RINSE 0.12%/15ML 120ML BOTTLE MT SCH (08:19)
[2017-10-25] MEDS: ASPIRIN 325 MG TAB NG SCH (08:20)
[2017-10-25] MEDS: ENOXAPARIN 40 MG/0.4 ML SYRINGE (J1650) SC SCH (08:20)
[2017-10-25] MEDS: LACRILUBE (AKWA TEARS) OPHTH OINT 3.5 GM OU SCH ×3 (08:21→20:32)
[2017-10-25] MEDS ORDERED: METOPROLOL TART 12.5 MG PER 1/2 TAB NG SCH (09:00)
--- NOTE | 2017-10-25 11:43 | CCN ---
CRITICAL CARE NOTE DATE OF VISIT: 10/25/2017 I attended Yarely Olguin here in the intensive care unit (ICU). Patient has been examined and her chart reviewed. Patient has not required pressors since Wednesday evening. Her Versed was discontinued on Wednesday, since then she has not required any sedation although she does have Morphine sulfate on board. She does not over breath the ventilator. She had two episodes of nonsustained supraventricular tachycardia overnight. Her intake and output midnight was 705 mL with 300 mL out. She will be getting an EEG with brain protocol today. PHYSICAL EXAMINATION: VITAL SIGNS: T-max overnight was 99.2, current temperature 99.0. Pulse 104 and regular. Respiratory rate 20. Blood pressure 114/59. Pulse ox is 97% on an FiO2 of 0.50. GENERAL: Patient is still mechanically ventilated on pressure regulated volume control (PRVC). She is unresponsive without sedation. HEENT: Pupils are 3 mm bilaterally and unreactive to light. NECK: Trachea is midline. LUNGS: Patient has symmetric expansion of the chest wall. Lungs are clear anteriorly, with some faint crackles at the lung bases posteriorly. Percussion is difficult to assess due to patient's body habitus. HEART: Mild sinus tachycardia with a regular rhythm. No murmurs, gallops, or rubs are appreciated. ABDOMEN: Patient is morbidly obese with hypoactive bowel sounds. No obvious organomegaly or masses though difficult to assess due to patient's habitus. EXTREMITIES: Patient does have some puffiness in the upper extremities especially by the hands. Lower extremities show signs of peripheral vascular disease, patient does have palpable pulses bilaterally. She does have some dependent edema. NEURO: She does not respond to voice. She did have bilateral plantar responses to Babinski's without fanning of the toes. Her cough and gag reflexes are intact. Deep tendon reflexes are diminished bilaterally. LABORATORY DATA: CBC: White blood cells 13.1, hemoglobin 9.5, hematocrit 28.9, platelets 196. Chemistry: Sodium 140, potassium 5.1, chloride 111, CO2 22, anion gap 7, BUN 40 , creatinine 1.49, fasting glucose 110, calcium 7.5, magnesium 2.1, total bilirubin 0.3, AST 64, ALT 41, alkaline phosphatase 65, troponin 0.15, total protein 5.3, albumin 2.4. ABG: pH 7.44, CO2 29, oxygen 169. IMAGING: Chest x-ray shows ET tube 2.5 cm above the paris, left triple lumen ending the superior vena cava (SVC), decreased air entry bilaterally. Decreased pulmonary infiltrates from yesterday's chest x-ray, however the left costophrenic angle is obscured. There is left atrial enlargement. Echocardiogram from 10/23/2017 showed dilated left ventricle with inferior septal akinesis and with left ventricular ejection fraction of 40%. MICROBIOLOGY: Blood culture showed Streptococcus Viridans group. IMPRESSION/PLAN: Mrs. Olguin is an unfortunate 72-year-old female admitted to intensive care status post cardiac arrest. The most pressing problems my presence at bedside: 1. Respiratory failure requiring mechanical ventilation. Patient is not over breathing her ventilator. She is currently on pressure regulated volume control (PRVC). We have decreased her tidal volume to 470. Her respiratory rate remains 20 with a peep of 5, and an FiO2 of 0.50. 2. Cardiac arrest. Patient does have mildly elevated troponins, 0.15 today. It is assumed that she had an arrhythmic event leading to prolonged loss of respiration and resulting in severe anoxic brain injury. Dr. Amador from cardiology did discuss with the patient's family and there is a DO NOT RESUSCITATE order in place. 3. Coronary artery disease with apical akinesis. Echo from Wednesday did show a dilated left ventricle with inferoseptal akinesis and a left ventricular ejection fraction of 40%. 4. Systolic dysfunction with underlying hypertension. Patient was recently restarted on Lopressor 12.5 mg twice a day. She has been off dopamine since Wednesday night. 5. Positive Streptococci Viridans on blood culture. This may represent a contaminant. Patient is on ceftriaxone 1 gram every 24 at the moment. I have ordered repeat blood cultures. Should these come back negative, we will withdraw antibiotics. 6. Relative hyperkalemia. Potassium is 5.1 today. I will recheck it again at 2 p.m. today. This may be in relation to the patient's acidotic state upon admission. 7. Deep venous thrombosis (DVT) prophylaxis. Patient is on Lovenox 40 mg subcutaneously daily. 8. Ulcer prophylaxis, patient is on Protonix 40 mg IV daily. 9. Anoxic brain injury. Dr. Castro from neurology is following. Patient will have an EEG with brain protocol today. Prognosis is guarded. She does have a standing DO NOT RESUSCITATE that remains place. Critical care time spent was 1 hour excluding procedure time. My faculty preceptor for this patient encounter was physically present during the encounter and was fully available. All aspects of the patient interview, examination, medical decision making process, and medical care plan development were reviewed and approved by the faculty preceptor. The faculty preceptor is aware and concurs with the plan as stated in the body of this note and will attest to such by her cosignature. I, Monty Samuel, agree with the above after an independent history and bedside physical exam. Case discussed with resident and agree with the plan as outlined above. CIARRA
--- NOTE | 2017-10-25 14:42 | EEG ---
DATE OF PROCEDURE: 10/25/2017 DIAGNOSIS: Anoxic brain injury. EEG NUMBER: [id number] REFERRING PHYSICIAN: Dr. Monty Samuel HISTORY: The patient is a 72-year-old woman who was admitted at [facility] due to anoxic brain injury from a cardiac arrest. She is currently on dopamine, ceftriaxone, Keppra, Lovenox, etc. TECHNICAL DESCRIPTION: This digital EEG was recorded by 21 scalp, ear and two EKG electrodes and was reviewed in bipolar and referential montages following reformatting in 10-20 international electrode placement system. INTERPRETATION: The patient is on mechanical ventilator without sedation and remains comatose. No clear electrographic cerebral rhythms were noted. EKG revealed normal sinus rhythm. No sleep was identified. No epileptiform abnormalities were seen. No clinical or electrographic seizures were seen. CONCLUSION: This EEG in a patient with anoxic brain injury, status post cardiac arrest on mechanical ventilator without sedation is abnormal due to absence of any electrographic cerebral rhythm. This EEG likely denotes a poor or guarded prognosis. Clinical correlation is recommended.
[2017-10-25] MEDS ORDERED: SLF 3 ML SYR IV PRN (14:45)
[2017-10-25] MEDS ORDERED: SODIUM CHLORIDE 0.9% INJ 10 ML SYR IV PRN (14:45)
--- NOTE | 2017-10-25 18:38 | ECGEPIP ---
Stationary ECG Study [facility] Test Date: 2017-10-25 Pat Name: LYN LOYA Department: Room: [place] [address] Gender: F [employer] Professor: VIANCA : 1945 Requested By: Chadwick Amador Order Number: [id number] Reading MD: Sanford Negro Measurements Intervals [place] Rate: 106 P: 10 MS: 164 QRS: -1 QRSD: 101 T: 131 QT: 328 QTc: 437 Interpretive Statements Sinus tachycardia. Somewhat low precordial voltage with slow precordial R-wave progression and small inferior Q waves; body habitus versus pulmonary disease. Rule out prior IWMI. Nonspecific ST/T-wave abnormalities Significantly increased rate but reduced ventricular ectopy from 10/22/17 at 2040 hrs. Electronically Signed On 10-25-2017 18:38:10 EST by Sanford Negro
[2017-10-25] MEDS: LORazepam 2 MG/ML VIAL (J2060) IV PRN ×4 (19:42→23:11)
[2017-10-25] MEDS: MORPHINE 2 MG/ML 1ML SYRINGE IV PRN ×4 (19:50→23:12)
[2017-10-25] MEDS ORDERED: SCOPOLAMINE 1.5 MG TRANSDERMAL TOP SCH (20:00)
[2017-10-25] MEDS: SODIUM CHLORIDE 0.9% INJ 10 ML SYR IV SCH (21:12)
[2017-10-25] MEDS: SLF 3 ML SYR IV SCH (21:26)
[2017-10-26] MEDS: LORazepam 2 MG/ML VIAL (J2060) IV PRN ×2 (01:17→05:42)
[2017-10-26] MEDS: MORPHINE 2 MG/ML 1ML SYRINGE IV PRN ×2 (01:17→05:43)
[2017-10-26] MEDS: SLF 3 ML SYR IV SCH (05:43)
[2017-10-26] MEDS: SODIUM CHLORIDE 0.9% INJ 10 ML SYR IV SCH (06:00)
--- NOTE | 2017-10-26 10:52 | DSES ---
DATE OF ADMISSION: 10/22/2017 DATE OF : 10/26/2017 CAUSE OF : 1. Hypoxic anoxic brain injury 2. Anoxic encephalopathy 3. Cardiopulmonary arrest, possibly secondary to arrhythmia. 4. Cardiogenic shock, treated with dopamine. 5. Respiratory failure. 6. Possible aspiration pneumonia, treated with antibiotics. 7. Hyperkalemia. 8. Metabolic acidosis. 9. Underlying coronary artery disease. 10. Acute pulmonary edema. PROCEDURES: 1. Left internal jugular triple lumen catheter (10/22/2017). 2. Endotracheal tube (10/22/2017). CONSULTANTS: 1. Neurology. 2. Cardiology. HOSPITAL COURSE: Mrs. Olguin presented to the emergency department on 10/22/2017. 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 She lost consciousness in her vehicle and her drove her to our emergency room. On arrival to the emergency room, she was asystolic. After prolonged cardiopulmonary resuscitation (CPR) there was return of spontaneous circulation. Central line was placed by Dr. Samuel and she was intubated, brought to the intensive care unit (ICU) and hypothermia protocol was started. She was made DO NOT RESUSCITATE by her family on Wednesday night. She continued to be unresponsive without sedation. Neurology was consulted and on 10/25/2017, electroencephalogram (EEG) with brain protocol was performed. The EEG found absence of any electrographic cerebral rhythm. No sleep was identified. No epileptiform abnormalities were seen. No clinical or electrographic seizures were seen. After discussion with the family, they decided to withdraw all life sustaining measures. Given the prognosis of brain , we supported that decision and care was withdrawn. She was pronounced at 0645 hours on 10/26/2017. DISPOSITION: [place]. My faculty preceptor for this patient encounter was physically present during the encounter and was fully available. All aspects of the patient interview, examination, medical decision making process, and medical care plan development were reviewed and approved by the faculty preceptor. The faculty preceptor is aware and concurs with the plan as stated in the body of this note and will attest to such by his/her co-signature. CIARRA
== END 2017-10-26 06:45 | disposition expired | DRG 308 ==
LOC: M ED 14:09 → M ED INP 16:02 → M ICU 16:50 → M MSPAV 10-26 03:33
PROVIDERS: ADMIT Internal Medicine Pulmonary Disease; ATTEND Internal Medicine Pulmonary Disease
PROC: 02HV33Z Insertion of Infusion Device into Superior Vena Cava, Percutaneous Approach (ICD-10-PCS; principal; 2017-10-22)
PROC: 5A1945Z Respiratory Ventilation, 24-96 Consecutive Hours (ICD-10-PCS; 2017-10-22)
DX: I47.2 Ventricular tachycardia (principal); J69.0 Pneumonitis due to inhalation of food and vomit; J81.0 Acute pulmonary edema; E87.2 Acidosis; G93.1 Anoxic brain damage, not elsewhere classified; Z66 Do not resuscitate; I46.9 Cardiac arrest, cause unspecified; E87.5 Hyperkalemia; I25.10 Atherosclerotic heart disease of native coronary artery without angina pectoris; I10 Essential (primary) hypertension; G47.33 Obstructive sleep apnea (adult) (pediatric); Z99.89 Dependence on other enabling machines and devices; Z95.9 Presence of cardiac and vascular implant and graft, unspecified; Z79.82 Long term (current) use of aspirin; Z79.899 Other long term (current) drug therapy; Z88.8 Allergy status to other drugs, medicaments and biological substances; R57.0 Cardiogenic shock